=== PATIENT | female | born 1990 | race Caucasian/White ===

== ENCOUNTER 2018-09-13 13:58 | Emergency (ER) | payer BC, OTHER ==
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
--- NOTE | 2018-09-13 17:08 | EDPHYS ---
Physician Documentation [facility] Name: Juju Montgomery Age: 28 yrs Sex: Female : 1990 Arrival Date: 09/13/2018 Time: 14:03 Bed 16 Private MD: ED Physician Wei Fuller HPI: 09/13 17:11 This 28 yrs old Female presents to ER via Ambulatory with complaints of sent kdr by uc to r/o blood clot. 17:11 The patient presents with a contusion, an injury, pain, that is acute, swelling, kdr tenderness. The complaints affect the left farias. Context: [place], the patient can fully bear weight, the patient is able to ambulate, with mild difficulty. Onset: The symptoms/episode began/occurred suddenly, Last weekend. Modifying factors: The symptoms are alleviated by nothing. the symptoms are aggravated by movement, weight bearing. Associated signs and symptoms: The patient has no apparent associated signs or symptoms. Treatment prior to arrival includes: max wrap. Severity of symptoms: At their worst the symptoms were mild, in the emergency department the symptoms are unchanged. The patient has not experienced similar symptoms in the past. 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 - Social history:: Smoking status: Patient/guardian denies using tobacco. - Ebola Screening: : No symptoms or risks identified at this time. ROS: 17:11 Constitutional: Negative for fever, chills, and weight loss, Eyes: Negative for injury, kdr pain, redness, and discharge, ENT: Negative for injury, pain, and discharge, Neck: Negative for injury, pain, and swelling, Cardiovascular: Negative for chest pain, palpitations, and edema, Respiratory: Negative for shortness of breath, cough, wheezing, and pleuritic chest pain, Abdomen/GI: Negative for abdominal pain, nausea, vomiting, diarrhea, and constipation, Back: Negative for injury and pain, : Negative for injury, bleeding, discharge, and swelling, Neuro: Negative for headache, weakness, numbness, tingling, and seizure activity. Psych: Negative for depression, anxiety, suicide ideation, homicidal ideation, and hallucinations, Allergy/Immunology: Negative for hives, rash, and allergies, Endocrine: Negative for neck swelling, polydipsia, polyuria, polyphagia, and marked weight changes, Hematologic/Lymphatic: Negative for swollen nodes, abnormal bleeding, and unusual bruising. 17:11 MS/extremity: Positive for injury or acute deformity, pain, swelling, tenderness, of the left farias. Exam: 17:11 Constitutional: This is a well developed, well nourished patient who is awake, alert, kdr and in no acute distress. Head/Face: Normocephalic, atraumatic. 17:11 Musculoskeletal/extremity: Extremities: grossly normal except: noted in the left farias: contusion, ecchymosis, erythema, pain, swelling, tenderness. Vital Signs: 14:14 BP 129 / 71; Pulse 76; Resp 16 S; Temp 98.6(TE); Pulse Ox 100% on R/A; Weight 68.76 kg aa5 (R); Height 5 ft. 3 in. (160.02 cm) (R); Pain 5/10; 15:40 BP 123 / 74; Pulse 77; Resp 16; Temp 98.1(O); Pulse Ox 100% ; Pain 5/10; rb1 16:15 BP 115 / 70; Pulse 60; Resp 17; Temp 98.5(O); Pulse Ox 100% on R/A; Pain 5/10; rb1 17:12 BP 118 / 75; Pulse 64; Resp 16; Temp 98.3(O); Pulse Ox 100% on R/A; Pain 5/10; rb1 14:14 Body Mass Index 26.85 (68.76 kg, 160.02 cm) aa5 MDM: 17:07 Patient medically screened. kdr 17:16 Data reviewed: vital signs, nurses notes, radiologic studies. Counseling: I had a kdr detailed discussion with the patient and/or guardian regarding: the historical points, exam findings, and any diagnostic results supporting the discharge/admit diagnosis, radiology results, the need for outpatient follow up. 09/13 16:01 Order name: Ankle Left 3 View XRAY kdr 09/13 16:01 Order name: Tib Fib Left XRAY kdr Administered Medications: No medications were administered Disposition: 09/13/18 17:07 Discharged to Home. Impression: Contusion to left anterior tibia. - Condition is Stable. - Discharge Instructions: Contusion, [id number]. - Prescriptions for Ibuprofen 600 mg Oral Tablet - take 1 tablet by ORAL route every 6 hours As needed take with food; 30 tablet. - Medication Reconciliation Form, Thank You Letter, Work release form form. - Follow up: Private Physician; When: 2 - 3 days; Reason: If symptoms return, Further diagnostic work-up, Recheck today's complaints, Continuance of care, Re-evaluation by your physician. - Problem is new. - Symptoms are unchanged. - Notes: Keep leg elevated to help the swelling go down Signatures: Dispatcher [employer] [facility] Wei Fuller MD MD [facility] Nichol Crawley RN RN aa5 Kayleen Olmos, RN RN rb1 Corrections: (The following items were deleted from the chart) 16:05 15:03 Extremity Venous [email or web address] ordered. [facility] 17:33 17:07 09/13/2018 17:07 Discharged to Home. Impression: Contusion to left anterior rb1 tibia. Condition is Stable. Forms are Medication Reconciliation Form, Thank You Letter, Antibiotic Education, Prescription Opioid Use. Follow up: Private Physician; When: 2 - 3 days; Reason: If symptoms return, Further diagnostic work-up, Recheck today's complaints, Continuance of care, Re-evaluation by your physician. Problem is new. Symptoms are unchanged. kdr
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
== END 2018-09-13 17:33 | disposition home or self-care (01) ==
LOC: ER 13:58
DX: S80.12XA Contusion of left lower leg, initial encounter (principal); X58.XXXA Exposure to other specified factors, initial encounter; Y93.19 Activity, other involving water and watercraft; Y92.832 Beach as the place of occurrence of the external cause
CPT/HCPCS: 99283